=== PATIENT | male | born 1955 | race Caucasian/White ===

== ENCOUNTER → 2017-03-10 | Outpatient (CLI) | payer OTHER ==
[~2017-03-10] MED LIST: ALLEGRA ALLERG180 MG PO; CENTRUM SILVER1 EAC2 PO; CHLORTHALIDONE25 MG PO; CYMBALTA60 MG PO; FLOMAX0.4 MG PO; KLOR-CON 1010 MEQ PO; LOPRESSOR25 PO; LYRICA 75 MG CA75 MG PO; NORVASC10 MG PO; PERCOCET PO; PROBIOTIC1 EAC1 PO; ZYRTEC10 M5 PO
== END ==
LOC: M.LAB 14:46
DX: B99.9 Unspecified infectious disease (principal)

== ENCOUNTER → 2017-06-09 | Outpatient (CLI) | payer OTHER | LOC: M.LAB 15:51 | DX: M1A.0221 Idiopathic chronic gout, left elbow, with tophus (tophi) (principal) ==

== ENCOUNTER → 2017-12-31 | Outpatient (CLI) | payer OTHER | LOC: M.LAB 05:19 | DX: Z01.812 Encounter for preprocedural laboratory examination (principal) ==

== ENCOUNTER → 2018-03-16 | Outpatient (CLI) | payer OTHER | LOC: M.ULTRA 09:44 | DX: M71.21 Synovial cyst of popliteal space [Baker], right knee (principal); M79.661 Pain in right lower leg; M79.89 Other specified soft tissue disorders ==

== ENCOUNTER → 2018-07-27 | Outpatient (CLI) | payer OTHER | LOC: M.MRI 06:44 | DX: S83.282A Other tear of lateral meniscus, current injury, left knee, initial encounter (principal); M71.22 Synovial cyst of popliteal space [Baker], left knee; X58.XXXA Exposure to other specified factors, initial encounter; Y93.89 Activity, other specified; Y92.89 Other specified places as the place of occurrence of the external cause; Y99.8 Other external cause status ==

== ENCOUNTER → 2018-08-16 | Outpatient (CLI) | payer OTHER | LOC: M.LAB 04:58 | DX: E87.6 Hypokalemia (principal) ==

== ENCOUNTER 2018-11-22 10:10 | Inpatient (IN) | payer OTHER ==
[2018-11-10 08:54] LABS: ABSOLUTE BASOPHILS 0.1 thou/uL (0.0-0.2); ABSOLUTE EOSINOPHILS 0.3 thou/uL (0.0-0.7); ABSOLUTE LYMPHOCYTES 3.8 thou/uL (0.8-5.3); ABSOLUTE MONOCYTES 0.5 thou/uL (0.0-1.2); ABSOLUTE NEUTROPHILS 3.7 thou/uL (1.6-8.1); BASOPHILS 0.8 %; EOSINOPHILS 3.4 %; HEMATOCRIT 46.5 % (42.0-52.0); HEMOGLOBIN 15.7 gm/dL (14.0-18.0); LYMPHOCYTES 45.4 %; MCHC 33.8 g/dL (28.0-37.0); MCV 88.8 fL (80.0-100.0); MONOCYTES 5.8 %; MPV 8.4 fl. (7.2-11.1); NUCLEATED RBCS 0 /100WBC; PLATELET COUNT* 269 thou/uL (150-400); POLYS 44.6 %; RBC 5.23 mil/uL (4.50-6.00); WBC 8.3 thou/uL (4.0-11.0)
[2018-11-10 09:22] LABS: ALBUMIN 4.2 g/dL (3.4-5.0); CALCIUM 9.3 mg/dL (8.5-10.1); CREATININE 0.9 mg/dL (0.6-1.3); POTASSIUM 4.1 mmol/L (3.5-5.1); TOTAL BILIRUBIN 0.7 mg/dL (<0.1-1.0); TOTAL PROTEIN 7.1 g/dL (6.4-8.2)
--- NOTE | 2018-11-10 11:55 | EKG ---
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
[2018-11-11 02:07] LABS: GLYCOHEMOGLOBIN (HGB A1C) 5.6 % (4.8-5.6)
[~2018-11-22] VITALS: Ht 188 cm; Wt 127.0 kg
[2018-11-22 15:00] VITALS: BP 147/90
[2018-11-22 15:52] VITALS: BP 138/96
--- NOTE | 2018-11-22 16:54 | NUR ---
PT ARRIVED TO UNIT AT 1455 FROM PACU. PT A&Ox4. VITALS STABLE. IV PATENT. DRESSING C/D/I. TEDs, SCDs AND ICE PACK IN PLACE. ON 2L02 WITH CAPNO. TOLERATING DIET. DENIED N/V. HAS NOT GOT UP DURING SHIFT. HAS URINATED. FALL PRECAUTIONS IN PLACE. CALL LIGHT WITHIN REACH. WILL CONTINUE TO MONITOR.
[2018-11-22 19:40] VITALS: BP 98/53
[2018-11-22 19:50] VITALS: BP 131/85
[2018-11-23] VITALS: BP 133/93
[2018-11-23 04:00] VITALS: BP 131/87
[2018-11-23 04:21] LABS: HEMATOCRIT 36.5 % (42.0-52.0); HEMOGLOBIN 12.4 gm/dL (14.0-18.0)
--- NOTE | 2018-11-23 06:28 | NUR ---
PT ALERT AND ORIENTED. VSS ON 1L NC. ASSESSMENT DOCUMENTED. PT WAS UP MOST OF THE NIGHT. PAIN MEDS GIVEN MULTIPLE TIMES THIS SHIFT. CAPNO IN PLACE. PT USED URINAL FOR VOIDING THIS SHIFT. PT YET TO AMBULATE. MEDS GIVEN PER EMAR. CALL LIGHT WITHIN REACH. HOURLY RONUDINGS MADE. WILL CONTINUE TO MONITOR.
--- NOTE | 2018-11-23 06:45 | OP ---
[facility] [address] [place] [address] OPERATIVE REPORT Name: NUNO WELDON Room: [address] M.R.#: [id number] Admission: 11/22/18 Attend Phys: Vickie Saavedra Discharge: Date of : 51 Report #: [id number] THIS REPORT FOR: //name// CC: Noe Bliss DATE OF SERVICE: 11/22/2018 PREOPERATIVE DIAGNOSIS: Valgus deformity, osteoarthritis, tricompartmental of his left knee. POSTOPERATIVE DIAGNOSIS: Valgus deformity, osteoarthritis, tricompartmental of his left knee.. SURGERY PERFORMED: Nayely cemented 3 component, left total knee Persona arthroplasty, femur 11, tibia G, polyethylene 10 and 32 patella. SURGEON: Dr. Corbett. FORMING MACHINE UPKEEP MECHANIC HELPER: Dr. Morrow. SECOND CREATIVE INTERN: Dr. Mendoza. ANESTHESIA: General anesthetic. The patient did receive vancomycin 1 gram IV piggyback preoperatively. ESTIMATED BLOOD LOSS: 100 mL. COMPLICATIONS: None. SPECIMENS: None. GROSS FINDINGS: Prior to surgery, this gentleman failed all conservative care measures of left knee osteoarthritis, previously even had an arthroscopy verifying significant tricompartmental arthritis. He did have chronic effusion to the knee region with underlying history of gout, arthritis as well as the gentleman failing conservative cares of NSAIDs, injections, etc. An ADLs were severely affected. Intraoperatively, he did correlate with his radiographs; however, he had significant eburnated bone in the entire multiple surface of the lateral femoral condyle and medial condyle and patellofemoral joint. Hypoplastic lateral femoral condyle was noted as well. Post placement of the arthroplasty, he had a well-tracking patella. He had a full range of motion, it was stable in flexion and extension and mid flexion. [address] [address] OPERATIVE REPORT Name: NUNO WELDON Room: [address] IN [facility].#: [id number] Admission: 11/22/18 Attend Phys: Vickie Saavedra Discharge: Date of : 51 Report #: [id number] SURGERY IN DETAIL: This gentleman was taken to the operating room. Prior to the operating room, had an adductor block applied by Anesthesia and underwent Hibiclens. He had a well-padded tourniquet placed high on his left leg after he had a general anesthetic. He then underwent a Hibiclens scrub and chlorhexidine prep x 2 and sterile draping for left knee surgery. Timeout was called and verified by everyone in the room for the left knee. I did not use tourniquet until I did cementing technique. A midline incision was made with a 10 blade scalpel through skin and subcutaneous tissues. A second medial parapatellar capsular incision was made with a new knife blade. Patella everted, knee flexed to 90 degrees. Hemostasis was maintained throughout surgery. I removed excess synovium that he had in the knee region that was hyperplastic. At this point in time, distal femoral drill hole was made in routine fashion and then I placed a distal femoral cutting guide in place. I took an extra 2 mm of bone off since he had a hypoplastic lateral femur and got down to a nice butterfly surface at a 5-degree angle. At this time, we did an external guide now to the tibia. I measured off the most ties. I took a 10 mm cut off of that and when I secured the bone block in place and that wafer of bone was now removed. The extension block fit quite well and was stable. All excess pins were now removed. I went back and sized the femur to a #11. The 4-in-1 block was now applied. I liked the alignment of that and all cuts were made with oscillating saw. Once this was completed, I did go ahead and sized the tibia to number G component, it was transfixed with the base tray into the tibia with screw technique with the [address] and a 10 mm trial polyethylene and it had good motion, good stability. I now elected to do a reamer to the patella to a nice smooth surface, sized it to a 32 and trial tracked well. At this point in time, I then drilled the distal femur. I Esmarched this extremity and inflated the tourniquet to 350 mmHg. Once this was accomplished, I was preparing him for 1 stage cement. I did drill the medial side of the tibia and was extra hard bone. A pulsatile lavage irrigated the knee, preparing it for 1 stage cementing technique. Secondary to history of colon cancer, I did do vancomycin cement with Palacos and 2 grams cement was mixed and placed on all components and the bone. The 1 stage cement was tamped into position in the tibia component, the femoral component and the patella. All excess cement was removed. The leg was held now with an 11 [address] in [address]. Once the cement had hardened, I did take out that tray and removed any excess cement that was found, pulsatile lavage irrigated this knee and then I did go ahead and burnt the posterior corners again with electrocautery. The 11 mm vitamin E polyethylene was seated in the tibia tray and audible click was noted. The knee was reduced. The patella tracked well. I closed the knee now after I put TXA in the knee first, released the tourniquet, easily maintained hemostasis and then a pulsatile lavage, irrigated the knee again and closed the deep capsule layer with #1 Vicryl and #1 Ethibond in [id number]-[id number] fashion, subcutaneous tissues 2-0 Monocryl, simple inverted fashion running Stratafix, Dermabond to the skin with Mepilex dressing. The gentleman was transferred off table and taken [place] [address] OPERATIVE REPORT Name: NUNO WELDON Room: [address] IN [facility].#: [id number] Admission: 11/22/18 Attend Phys: Vickie Saavedra Discharge: Date of : 51 Report #: [id number] I attest I was present for all critical aspects of surgery. Needle, instrument, sponge counts correct. <ELECTRONICALLY SIGNED> By: Noe Corbett DO 11/23/18 0645 1314 [id number] Corbett DO /nt
[2018-11-23 10:29] VITALS: BP 109/70
--- NOTE | 2018-11-23 13:10 | NUR ---
RECIEVED O.T. EVAL AND TX ORDERS. WILL DEFER TO P.T. AT THIS TIME. PLEASE ORDER FURTHER O.T. SERVICES IF NEEDED.
--- NOTE | 2018-11-23 15:45 | NUR ---
SPOKE WITH PT.IN ROOM. HE WAS IN RECLINER. STATED HE WAS GOING HOME TOMORROW. HE WILL BE STAYING WITH HIS COUSIN,ROD VALADEZ, AT HER HOME IN [place]. HIS HAS MOVED TO [place] FOR A NEW JOB AND THEY ARE IN CRYSTAL MIDDLE OF MOVING OUT OF THEIR HOME. HE IS NORMALLY INDEPENDENT AT HOME. NO USE OF DME. HE WILL NEED A WALKER. CM CALLED IN PRESCRIPTION WRITTEN FOR MALINDA [facility]. WILL CHECK COPAY IN AM.
[2018-11-23 16:00] VITALS: BP 111/74
--- NOTE | 2018-11-23 16:30 | NUR ---
ASSUMED CARE OF PATIENT AT APPROX 0730. ALERT AND ORIENTED X4. VSS ON ROOM AIR. PAIN MANAGED WITH ORAL PAIN MEDICATIONS. PATIENT UP WITH GAIT BELT AND WALKER TO BATHROOM, VOIDING WITHOUT ISSUE. WORKED WELL WITH THERAPIES AND PROGRESSED TOWARD GOALS. NO OTHER COMPLAINTS THIS SHIFT. REPORT GIVEN AND TO CHRISTOPHER CORONEL AND ASSUMES CARE OF PATIENT.
--- NOTE | 2018-11-23 17:21 | NUR ---
PT REMAINED ALERT AND ORIENTED. PT RESTING IN ROOM. I AGREE WITH MORNING ASSESSMENT. PAIN MEDS GIVEN ORDERED. FALL RISK PRECAUTIONS IN PLACE. HOURLY ROUNDING COMPLETED. WILL CONTINUE TO MONITOR.
[2018-11-23 19:30] VITALS: BP 121/73
[2018-11-24 04:41] LABS: HEMATOCRIT 36.7 % (42.0-52.0); HEMOGLOBIN 12.3 gm/dL (14.0-18.0)
--- NOTE | 2018-11-24 06:32 | NUR ---
PT ALERT AND ORIENTED. VSS ON RA. ASSESSMENT DOCUMENTED. PAIN MEDS GIVEN THIS SHIFT. PT HAD A BATH EARLY THIS AM. PT SLEPT FOR A GOOD AMOUNT THIS SHIFT. PT UP TO RECLINER AT THIS TIME. CALL LIGHT WITHIN REACH. ANTICIPATED DC TODAY. HOURLY ROUNDINGS MADE. WILL CONTINUE TO MONITOR.
[2018-11-24 07:50] VITALS: BP 124/66
[2018-11-24] MEDS ORDERED: TRAMADOL 50 MG50 MG PO (09:30)
[2018-11-24] MEDS ORDERED: OXYCODONE HCL 55 MG PO (09:30)
[2018-11-24] MEDS ORDERED: LIDOPATCH1 EACH TOP (09:30)
[2018-11-24] MEDS ORDERED: CELEBREX 200 M200 M1 PO (09:30)
[2018-11-24] MEDS ORDERED: ELIQUIS5 MG PO (09:30)
[2018-11-24 12:27] VITALS: BP 121/73
--- NOTE | 2018-11-24 13:30 | NUR ---
PT.TO DISCHARGE TODAY. HE THINKS NOW HE SHOULD DO HOME HEALTH INSTEAD OF OUTPT. HE CHOSE [facility] FOR PT/OT. CONTACTED [facility] AND FAXED DISCHARGE SUMMARY,MED LIST AND ORTHO ORDERS TO HER. PUT SERVICE ADDRESS ON FACE SHEET OF PT.'S COUSIN JO [id number]. [facility] SAID THEY WOULD BE ABLE TO SEE HIM WEDNESDAY. [facility] OK'D WALKER FOR PT. ORDER OBTAINED AND GIVEN TO THERAPY DEPT. FAXED ORDER AND FACE SHEET TO [facility] [phone]. CM CALLED [employer] AND COPAY IS $53 FOR ELIQUIS. PT. SAID HE COULD AFFORD THIS. COUSIN WILL BE HER ABOUT 4 PM TO PICK HIM UP.
[2018-11-24 15:23] VITALS: BP 121/73
[2018-11-24 15:35] VITALS: BP 121/73
--- NOTE | 2018-11-24 16:10 | NUR ---
DISCHARGE HOME W/ HOME HEALTH SERVICES. PATIENT ALERT AND ORIENTED THRU SHIFT. USING [facility] FOR TRANSFERS AND AMBULATION. DRSG TO LT KNEE SURGICAL SITE WNL, CDI. TEDS ON BLE, THIGH HIGH. STATES PAIN CONTROLLED W/ CURRENT TX. COOPERATIVE W/ THERAPIES. PATIENT STATES TAKING SHOWER AT APPROX 3AM THIS MORNING. BELONGINGS GATHERED PER PATIENT. IV CATH SITE DISCONTINUED, COTTON BALL/TAPE APPLIED TO SITE, CATH TIP INTACT. DISCHARGE INSTRUCTIONS REVIEWED W/ PATIENT. PATIENT STATES VERBALLY OF UNDERSTANDING. COPY OF DISCHARGE AND ORIG RX SCRIPTS GIVEN TO PATIENT. PATIENT STATES HE WOULD LIKE TO WALK IN THE HALLS WHILE WAITING FOR HIS RIDE. PATIENT INFORMED HE HAS BEEN DISCHARGED FROM THE HOSPITAL AT THIS TIME. PATIENT STATES VERBALLY OF UNDERSTANDING. HRLY ROUNDS DONE. PATIENT DENIES CURRENT NURSING NEEDS AT THIS TIME.~JANICERNaresh
== END 2018-11-24 16:10 | disposition home health service (06) | DRG 470 ==
LOC: M.SUR 10:10 → M.TBA 13:32 → M.ORTHSURG 13:32 → M.SUR 13:48 → M.ORTHSURG 14:45
PROVIDERS: Orthopaedic Surgery; ADMIT Internal Medicine
PROC: 0SRD0J9 Replacement of Left Knee Joint with Synthetic Substitute, Cemented, Open Approach (ICD-10-PCS; principal; 2018-11-22)
DX: M17.11 Unilateral primary osteoarthritis, right knee (principal); C95.10 Chronic leukemia of unspecified cell type not having achieved remission; I10 Essential (primary) hypertension; Z96.642 Presence of left artificial hip joint; G89.29 Other chronic pain; M54.9 Dorsalgia, unspecified; Z79.899 Other long term (current) drug therapy; Z85.038 Personal history of other malignant neoplasm of large intestine; Z98.52 Vasectomy status